=== PATIENT | male | born 1955 | race Caucasian/White ===

== ENCOUNTER 2017-06-07 18:28 | Inpatient (IN) | payer MEDICARE ==
[~2017-06-07] VITALS: Ht 175.3 cm; Wt 100.8 kg
--- NOTE | ~2017-06-07 | MR17 ---
[facility] A Service of [facility] RADIOLOGY TEXT RESULTS PATIENT: JANY MORGAN LOCATION: [facility] 314 : 59 UNIT #: [id number] AGE: [address]: Joelle Calvillo MD SEX: M ORDER DR: [id number] [facility] [address]. [place], [place] [address] [id number] I MR#: [id number] Acc #: [id number] NAME: JANY MORGAN : 1955 SEX: M STUDY DATE/TIME: 06/08/2017 7:36 UNIT: [facility] PCU ROOM: [facility] STUDY DESCRIPTION: MR Brain WWo Contrast Attending Physician: Joelle Calvillo M.D. Ordering Physician: Emiliano Payne D.O. Primary Care Physician: Mykel Rivers M.D. MRI CENTER REPORT This report is preliminary unless electronic signature is present. EXAM MRI brain with and without contrast INDICATION Right eye pain yesterday. Right-sided weakness yesterday. Symptoms now improved. PROCEDURE Multiplanar, multisequence MR imaging of the brain prior to and following 20 mL of MultiHance. COMPARISON Head CT from 06/07/2017. FINDINGS BRAIN WITHOUT CONTRAST: Normal brain volume. There is no acute hemorrhage, abnormal mass effect, extraaxial fluid collection or hydrocephalus. No restricted diffusion. Flow voids major intracranial vessels are intact. Paranasal sinuses, mastoid air cells clear. BRAIN WITH CONTRAST: No abnormal intracranial enhancement. IMPRESSION No acute findings. No abnormal intracranial enhancement. Dictated by... Robles Gutierrez M.D. THIS IS AN ELECTRONICALLY VERIFIED REPORT Robles Gutierrez M.D. at 06/09/2017 8:14 AM EED/mjs [facility] A Service [facility] RADIOLOGY TEXT RESULTS PATIENT: JANY MORGAN LOCATION: [facility] 314- : 59 UNIT #: [id number] AGE: [address]: Joelle Calvillo MD SEX: M ORDER DR: TD: 06/08/2017 09:06 JOB #: [id number] MRI CENTER REPORT Page 1 of 1 COPY
--- NOTE | ~2017-06-07 | CT24 ---
[facility] A Service of [facility] RADIOLOGY TEXT RESULTS PATIENT: JANY MORGAN LOCATION: [facility] 314-01 : 59 UNIT #: [id number] AGE: [address]: Joelle Calvillo MD SEX: M ORDER DR: [id number] [facility] [address] [place], [place] [address] [id number] I MR#: [id number] Acc #: [id number] NAME: JANY MORGAN : 1955 SEX: M STUDY DATE/TIME: 06/07/2017 19:00 UNIT: [address] ROOM: [facility] STUDY DESCRIPTION: CT Angio Neck Stroke Attending Physician: Joelle Calvillo M.D. Ordering Physician: Emiliano Payne D.O. Primary Care Physician: Mykel Rivers M.D. MEDICAL IMAGING REPORT This report is preliminary unless electronic signature is present EXAM CT angiogram of neck with IV contrast (stroke). HISTORY Right side weakness today. TECHNIQUE This CT exam was performed with one or more of the following radiation dose reduction techniques: automatic exposure control, adjustment of mA and/or kV according to patient size, and iterative reconstruction. IV contrast enhanced CT angiogram of the head and neck was performed with 3-D reconstructions. FINDINGS Please see CTA head and neck (stroke) performed 06/07/2017 for results. Dictated by... Tacho Rashid M.D. THIS IS AN ELECTRONICALLY VERIFIED REPORT Tacho Rashid M.D. at 06/08/2017 11:21 PM CAROL/alondra TD: 06/07/2017 22:50 JOB #: [id number] MEDICAL IMAGING REPORT Page 1 of 1 COPY
--- NOTE | ~2017-06-07 | CO ---
Unit #: [id number] #: [id number] Patient: JANY MORGAN [id number] [facility] [address]. [place], [place] [address] [id number] I MR#: [id number] NAME: JANY MORGAN ROOM: 314 Age: 61 Sex: M Admission Date: 06/07/2017 : 1955 Attending Physician: Joelle Calvillo M.D. Primary Care Physician: Mykel Rivers M.D. Consultation Date: 06/07/2017 CONSULTATION REPORT PRIMARY CARE PHYSICIAN Gama Go M.D. REASON FOR CONSULTATION Right-sided numbness. PATIENT IDENTIFICATION This is a 61-year-old, right-handed, white male, who was evaluated in room 314 at [facility]. SOURCE OF INFORMATION The patient. PROBLEM LIST The patient actually was brought in via wheelchair as the friend drove him here and he reported that he had some headaches and then some numbness on the right side. PAST MEDICAL HISTORY 1. Prior stroke apparently in 2013 with some speech problem and numbness, which has resolved. 2. Hypertension. 3. Diabetes. 4. Congestive heart failure. 5. Low back pain and has Bergeron rods. 6. Carpal tunnel release. 7. Rotator cuff surgery. 8. GERD. HISTORY OF PRESENT ILLNESS This is a very pleasant 61-year-old gentleman, who actually presented at 6:28 p.m. yesterday so as a friend drove him here. He actually reported that when he woke up around 4:00, he noticed that he had numbness on the right side. He still reports some numbness on the right side. He actually went to sleep and it is reported around 1:00 p.m. So when he came at 6:28, he was outside the tPA window, but I requested a CTA and CTA was done, which was negative and his NIH numbers are not very high. He reports he has a stroke in the past and he sees Dr. Johny Watkins. His CTA is okay. His MRI is okay with no acute stroke and I am not really impressed with significant small-vessel disease. Otherwise, the CTA was okay. He is already taking aspirin. No falls or injuries. Unit #: [id number] #: [id number] Patient: JANY MORGAN He was reporting some headache. It was behind the right eye though. No insect bites. No change in medication. He was not weak. He went to [facility] and got his prescription that day. His vital signs were okay. No seizures. PAST MEDICAL HISTORY As discussed above. PAST SURGICAL HISTORY As discussed above. ALLERGIES None. HOME MEDICATIONS Aspirin 81 mg, omeprazole, metformin, glipizide, Januvia, amitriptyline, losartan, Voltaren, hydrocodone, Lyrica. FAMILY HISTORY No primary neurologic issues known to us. SOCIAL HISTORY He is . Lives with his . Denies tobacco, alcohol, or drug use. REVIEW OF SYSTEMS Detailed review of system was attempted. CONSTITUTIONAL: The patient denies any sleep issues, fever, chills, rigors, or sweats. HEENT: No headaches. No double vision, earache, runny nose, or sore throat. He has some numbness mostly on the right side though. CARDIOVASCULAR: No chest pain, clubbing, cyanosis, orthopnea, or palpitation. PULMONARY: No shortness of air, cough, or expectoration. GASTROINTESTINAL: No nausea, vomiting, diarrhea, or constipation. GENITOURINARY: No genitourinary symptoms. EXTREMITIES: Extremities problems, right sided numbness. BACK: No back problem. PSYCHIATRIC: No psychotic issue. NEUROLOGIC: History of prior stroke. He is diabetic. Otherwise, no hematologic, dermatological, or endocrine problem. PHYSICAL EXAMINATION VITAL SIGNS: Temperature 98 degrees Fahrenheit, pulse 78, respirations 18, blood pressure 108/73, O2 saturations were 97%. Weight of 220 pounds. BMI was 32. NEUROLOGIC: The patient is awake. He is alert except for knowing the exact date of the month, which he states he usually does not know. He is fine. He can name and he can follow commands. No right or left confusion. No finger agnosia. Cranial nerve examination demonstrates full perez of vision to confrontation. Eye movements are conjugate. I did not see any ptosis. I did not see any nystagmus. Extraocular movements are intact. Sensation Unit #: [id number] #: [id number] Patient: JANY MORGAN on the face and scalp are normal. Strength of muscles of facial expression normal. Hearing seemed to be intact bilaterally. Tongue was midline. Uvula was midline. Head turning was spontaneously. Motor exam, he has normal bulk and tone. Strength was essentially 5-/5 all over. No pronator drift was seen. Fine motor movements are okay. Sensory examination shows very minimal decreased sensation on the dorsum of the right upper extremity. I really did not see any significant sensory deficits. Position sensation was intact. Romberg was not evaluated. Gait examination was deferred. I could not get any reflexes. Toes are equivocal. Coordination was normal for txrwfb-hq-mlsn-to-finger. DIAGNOSTIC STUDIES IMAGING STUDIES: Reviewed, reports reviewed. LABORATORY RESULTS: Random glucose was 176 to 186. His hemoglobin A1c was 6.8. LDL of 77, triglycerides were 178. White count was 8.5, H and H of 14.5 and 42.5. IMPRESSION Very nonspecific right-sided numbness and his MRI is negative. His CTA is negative. My recommendation would be to go to full aspirin and put him on lipid-lowering medication and observe. I am not changing anything right now. It is very difficult to call it a transient ischemic attack when he has continues to have the symptoms, but no signs, but he has risk factors, and I told him that and gave him an example that with his risk factors, he practically can go out, being discharged, and can have a major stroke because his age, hypertension, diabetes, hypercholesterolemia. He has risk factors, so I will go aggressive treatment, avoid dehydration, stroke education, and modification of stroke risk factors as apply and call me for any other questions, issues, or concerns. Dictated by... Malika High/radha TD: 06/09/2017 01:22 JOB #: [id number] CONSULTATION REPORT Page 1 of 1 X Phillip Contreras MD X CONSULTATION REPORT
--- NOTE | ~2017-06-07 | EKG ---
PATIENT: JANY MORGAN UNIT #: [id number] Ventricular Rate: 81 BPM Atrial Rate: 81 BPM P-R Interval: 194 ms QRS Duration: 90 ms Q-T Interval: 378 ms QTC Calculation(Bezet): 439 ms P [place]: 98 degrees Calculated R [place]: 74 degrees Calculated T [place]: 70 degrees Diagnosis Line: Normal sinus rhythm Diagnosis Line: Normal ECG Diagnosis Line: When compared with ECG of 22-OCT-2016 15:19, Diagnosis Line: No significant change was found Diagnosis Line: Confirmed by GELY DAVIS MD ([id number]) on 06/10/2017 Diagnosis Line: 10:41:58 PM INTERPRETING MD: RYAN BOX
--- NOTE | ~2017-06-07 | DS ---
Unit #: [id number] #: [id number] Patient: JANY MORGAN [id number] [address] [place], [place] [address] [id number] I MR#: [id number] NAME: JANY MORGAN ROOM: 314 Age: 61 Sex: M Admission Date: 06/07/2017 : 1955 Discharge Date: 06/09/2017 Attending Physician: Joelle Calvillo M.D. Primary Care Physician: Mykel Rivers M.D. DISCHARGE SUMMARY CONSULTANTS Dr. Contreras from neurology services. DIAGNOSTIC DATA LABORATORY: Hemoglobin A1c 6.8. BMP shows sodium 135, potassium 4.1, chloride 106, bicarb 22, BUN 12, creatinine 1.1, calcium 8.5. PT/INR was 10.1 and 0.9. CBC shows white blood cell count 8.5, hemoglobin 14.5, hematocrit 42.5, platelet count 237. Troponin less than 0.05. IMAGING: CT scan of the head without contrast, which was normal. This was performed on 06/07/2017. CTA of the head and neck was done on 06/07/2017, which shows normal examination, 0% cervical carotid artery stenosis. MRI of the brain, which showed no acute finding. No abnormal intracranial enhancement. CARDIOVASCULAR: Echocardiogram, which showed left ventricular systolic function is normal with visually estimated ejection fraction of 55%. No evidence of any pericardial effusion. Right ventricle was not clearly visualized. No evidence of pericardial effusion. FINAL DIAGNOSES 1. Right hand weakness and numbness. Acute CVA has been ruled out. These are nonspecific. Maybe the patient does have carpal tunnel syndrome or ulnar neuropathy. The patient will be given a right hand brace. Advised to continue aspirin. The patient has had CVA in the past. The patient has an appointment with Dr. Watkins coming up. Discussed with Dr. Contreras. No other workup is needed. The patient will be discharged home in stable condition. 2. Diabetes mellitus type 2. The patient's hemoglobin A1c is 6.8. He has been doing well. Continue home medications. Diet control, diet counseling done. 3. Hypertension. Stable on current medications. No medication change was done during hospitalization. 4. Hyperlipidemia. The patient is on anti-lipid medications. Continue the same. 5. Chronic back pain. Continue home medications. 6. Overweight. Weight loss counseling done. PHYSICAL EXAMINATION VITALS: At discharge, blood pressure 124/91, respiratory rate 16, pulse 71, temperature 98, oxygen saturation 96%. Unit #: [id number] #: [id number] Patient: JANY MORGAN: Head is normocephalic. Eye movements are normal. NECK: Supple. CHEST: Fair air entry. No additional sounds. HEART: S1 and S2 positive. Regular rhythm. ABDOMEN: Soft. EXTREMITIES: Negative edema. 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 NEUROLOGIC: The patient is awake, alert and oriented times three. No focal neurological deficits except the right hand. DISPOSITION The patient is being discharged home in stable condition. DISCHARGE INSTRUCTIONS 1. Medications per medication reconciliation. 2. Follow up with primary care provider in one week. 3. Follow up with Dr. Watkins. The patient already has an appointment. Dictated by... Malika Urena TD: 06/09/2017 11:59 JOB #: [id number] DISCHARGE SUMMARY Page 1 of 1 X Joelle Calvillo MD X DISCHARGE SUMMARY
--- NOTE | ~2017-06-07 | CT72 ---
[facility] A Service of [facility] RADIOLOGY TEXT RESULTS PATIENT: JANY MORGAN [facility]ATION: [facility] 314-01 : 59 UNIT #: [id number] AGE: [address]: Joelle Calvillo MD SEX: M ORDER DR: [id number] [facility] [address] [place], [place] [address] [id number] I MR#: [id number] Acc #: [id number] NAME: JANY MORGAN : 1955 SEX: M STUDY DATE/TIME: 06/07/2017 18:44 UNIT: CEDOF ROOM: 64[address] STUDY DESCRIPTION: CT Head Wo Contrast Stroke Attending Physician: Joelle Calvillo M.D. Ordering Physician: Emiliano Payne D.O. Primary Care Physician: Mykel Rivers M.D. MEDICAL IMAGING REPORT This report is preliminary unless electronic signature is present EXAM CT brain without contrast. HISTORY Right side weakness today. TECHNIQUE This CT exam was performed with one or more of the following radiation dose reduction techniques: automatic exposure control, adjustment of mA and/or kV according to patient size, and iterative reconstruction. FINDINGS Axial noncontrast images were obtained from the skull base to the vertex. Ventricular size and configuration are normal. There is no evidence of acute infarct or hemorrhage. There are no extra-axial fluid collections. No mass lesion or mass effect is seen. There are no skull fractures. IMPRESSION Normal noncontrast head CT. Dictated by... Tacho Rashid M.D. THIS IS AN ELECTRONICALLY VERIFIED REPORT Tacho Rashid M.D. at 06/08/2017 11:19 PM CAROL/alondra TD: 06/07/2017 21:33 JOB #: [id number] [facility] A Service of [facility] RADIOLOGY TEXT RESULTS PATIENT: JANY MORGAN LOCATION: [facility] 314-01 : [birth year] UNIT #: [id number] AGE: [address]: Joelle Calvillo MD SEX: M ORDER DR: MEDICAL IMAGING REPORT Page 1 of 1 COPY
--- NOTE | ~2017-06-07 | CT18 ---
[facility] A Service of [facility] RADIOLOGY TEXT RESULTS PATIENT: JANY MORGAN LOCATION: [facility] 314 : 59 UNIT #: [id number] AGE: [address]: Joelle Calvillo MD SEX: M ORDER DR: [id number] [facility] [address] [place], [place] [address] [id number] I MR#: [id number] Acc #: [id number] NAME: JANY MORGAN : 1955 SEX: M STUDY DATE/TIME: 06/07/2017 19:00 UNIT: [address] ROOM: [facility] STUDY DESCRIPTION: CT Angio Head Stroke Attending Physician: Joelle Calvillo M.D. Ordering Physician: Emiliano Payne D.O. Primary Care Physician: Mykel Rivers M.D. MEDICAL IMAGING REPORT This report is preliminary unless electronic signature is present EXAM CT angiogram of head and neck with IV contrast. HISTORY Right side weakness today. TECHNIQUE This CT exam was performed with one or more of the following radiation dose reduction techniques: automatic exposure control, adjustment of mA and/or kV according to patient size, and iterative reconstruction. IV contrast enhanced CT angiogram of the head and neck was performed with 3-D reconstructions. FINDINGS CT ANGIOGRAM NECK: The common carotid arteries and carotid bulbs and cervical internal carotid arteries appear widely patent bilaterally. Tortuous distal cervical internal carotid arteries. Exam sensitivity is partly limited by motion artifact degrading evaluation of the superior cervical region. Both vertebral arteries are widely patent. CT ANGIOGRAM BRAIN: The intracranial vertebral arteries, basilar artery and the intracranial internal carotid arteries are widely patent bilaterally. Minimal calcified atherosclerotic plaque in the cavernous carotid arteries bilaterally. The anterior cerebral, middle cerebral and posterior cerebral arteries are also widely patent bilaterally. No major intracranial arterial vessel stenosis or occlusion. IMPRESSION 1. Normal examination. 0% cervical carotid artery stenosis by NASCET criteria. [facility] A Service of [facility] RADIOLOGY TEXT RESULTS PATIENT: JANY MORGAN LOCATION: [facility] 314 : [birth year] UNIT #: [id number] AGE: [address]: Joelle Calvillo MD SEX: M ORDER DR: 2. Both vertebral arteries are widely patent. 3. No intracranial arterial stenosis or major vessel occlusion. No aneurysm or vascular malformation is identified. Dictated by... Tacho Rashid M.D. THIS IS AN ELECTRONICALLY VERIFIED REPORT Tacho Rashid M.D. at 06/08/2017 11:19 PM CAROL/alondra TD: 06/07/2017 22:47 JOB #: [id number] MEDICAL IMAGING REPORT Page 1 of 1 COPY
[2017-06-07 18:52] LABS: BASOPHIL# 0.1 X10e3 (0-0.3); BASOPHIL% 0.8 % (0-2.5); EOSINOPHIL# 0.6 X10e3 (0-0.7); EOSINOPHIL% 7.1 % (0.0-7.0); HEMATOCRIT 42.5 % (38.0-50.0); HEMOGLOBIN 14.5 gm/dL (13.0-16.0); LYMPHOCYTE# 1.9 X10e3 (1.0-3.5); LYMPHOCYTE% 21.9 % (17.0-45.0); MEAN CELL VOLUME 92.2 FL (83-96); MEAN CORPUSCULAR HEMOGLOBIN 31.5 PG (28-34); MEAN CORPUSCULAR HGB CONC 34.2 g/dL (30-36); MEAN PLATELET VOLUME 8.2 FL (6.5-11.5); MONOCYTE# 0.6 X10e3 (0-1.0); MONOCYTE% 7.3 % (3.0-12.0); NEUTROPHIL# 5.4 X10e3 (1.5-7.1); NEUTROPHIL% 62.9 % (40-75); PLATELET COUNT 237 X10e3 (140-420); RED BLOOD COUNT 4.61 X10e (3.90-5.60); RED CELL DISTRIBUTION WIDTH 13.7 % (11.0-15.5); WHITE BLOOD COUNT 8.5 X10e3 (4.0-10.5)
[2017-06-07 18:53] LABS: DIFF IND NO
[2017-06-07 19:04] LABS: POC - CKMB 1.6 ng/mL (0.0-7.9); POC - TROPONIN <0.05 ng/mL (<=0.05)
[2017-06-07 19:09] LABS: INR 0.9; PROTHROMBIN TIME (PATIENT) 10.1 SECONDS (10.0-11.7)
[2017-06-07 19:15] LABS: BUN/CREATININE RATIO 8.57; CALCIUM SERUM 8.7 mg/dL (8.4-10.2); CREATININE SERUM 1.4 mg/dL (0.6-1.4); GLOM FILT RATE Estimated 54.6 mL/min (>60); POTASSIUM 4.1 mmol/L (3.5-5.1)
[2017-06-07] MEDS ORDERED: ASPIRIN EC81 M1 PO (20:28)
[2017-06-07] MEDS ORDERED: OMEPRAZOLE20 M2 PO (21:09)
[2017-06-07] MEDS ORDERED: LYRICA PO (21:09)
[2017-06-07] MEDS ORDERED: GLIPIZIDE5 GM PO (21:10)
[2017-06-07] MEDS ORDERED: METFORMIN PO (21:10)
[2017-06-07 21:11] LABS: POC - CREATININE 1.22 mg/dL (0.64-1.27); POC - GFR >60.0 mL/min (>60)
[2017-06-07] MEDS ORDERED: AMITRIPTYLINE H25 MG PO (21:11)
[2017-06-07] MEDS ORDERED: COZAAR PO (21:11)
[2017-06-07] MEDS ORDERED: JANUVIA PO (21:11)
[2017-06-07] MEDS ORDERED: VOLTAREN25 MG TOP (21:12)
[2017-06-07] MEDS ORDERED: LORTAB 10-3251 EACH PO (21:13)
[2017-06-08 06:26] LABS: BUN/CREATININE RATIO 10.9; CALCIUM SERUM 8.5 mg/dL (8.4-10.2); CREATININE SERUM 1.1 mg/dL (0.6-1.4); GLOM FILT RATE Estimated 73.1 mL/min (>60); POTASSIUM 4.1 mmol/L (3.5-5.1)
[2017-06-09] MEDS ORDERED: ACETAMINOPHEN650 M1 PO (10:00)
== END 2017-06-09 11:50 | disposition home or self-care (01) | DRG 948 ==
LOC: CED 18:28 → CEDOF 21:03 → CED 21:26 → C3A PCU 22:41 → CEDOF 22:41 → C3A PCU 06-09 11:50
PROVIDERS: Emergency Medicine
DX: R53.1 Weakness (principal); I11.0 Hypertensive heart disease with heart failure; I50.9 Heart failure, unspecified; E11.9 Type 2 diabetes mellitus without complications; E78.5 Hyperlipidemia, unspecified; R20.0 Anesthesia of skin; M54.9 Dorsalgia, unspecified; G89.29 Other chronic pain; M54.5 Low back pain; E66.3 Overweight; K21.9 Gastro-esophageal reflux disease without esophagitis; Z86.73 Personal history of transient ischemic attack (TIA), and cerebral infarction without residual deficits; Z68.34 Body mass index [BMI] 34.0-34.9, adult
CPT/HCPCS: 36415; 70450; 70496; 70498; 70553; 80048; 80061; 82553; 82565; 82947; 83036; 84484; 85025; 85610; 93005; 93306; 99291; A9577; C9113; J1650; Q9967